=== PATIENT | male | born 1930 | race Caucasian/White ===

== ENCOUNTER 2016-11-15 18:07 | Observation (INO) ==
--- NOTE | 2016-11-15 19:21 | Emergency Department Note ---
Weakness HPI - General Chief complaint: Weakness Stated complaint: weakness, L eye difficulty Time Seen by Provider: 11/15/16 19:09 Source: patient Mode of arrival: ambulatory - History of Present Illness HPI Narrative: patient is here with a variety of symptoms for 1 he just generally feels weak, second also is no some tingling to left side of his face, as I on the left side is also a little bit tingling does have some tears to the left eye while ago. Notany skin rash, did have a little bit of left-sided facial pain which is now resolved. The. He does have dentures, no fevers, no chills, no chest pain, he always has a little bit of abdominal pain. Does have a history of some aneurysms, last time he checked out. They were 4 cm in size. No nausea, vomiting, no diarrhea,he was a little bit more winded today. Does have a history of CHF. MD Complaint: generalized weakness - Related Data Home Medications Medication Instructions Recorded Confirmed Oxygen 3L multimedia assistant 3 lf MISCELLANE CONT 05/31/15 11/11/16 Previous Rx's Medication Instructions Recorded labetalol 100 mg tablet 100 mg PO BID #90 tab 09/23/16 triamcinolone acetonide 0.5 % 1 applic TOPICAL BID #45 g 09/23/16 topical ointment Allergies Allergy/AdvReac Type Severity Reaction Status Date / Time azithromycin [From Zithromax] Allergy Unknown Unknown Verified 11/15/16 18:14 Cephalosporins Allergy Unknown Unknown Verified 11/15/16 18:14 lisinopril Allergy Unknown Unknown Verified 11/15/16 18:14 nifedipine [From Procardia] Allergy Unknown Unknown Verified 11/15/16 18:14 losartan Allergy Rash Verified 11/15/16 18:14 Review of Systems All systems ED: reviewed and negative except as stated. Past Medical History - Past Medical History Source: old records reviewed, nursing notes reviewed Medical history: Reports: CHF, COPD, GERD, hyperlipidemia, hypertension, osteoporosis, renal disease, other (CHF, left mastectomy, pancreatitis, cholecystectomy, hypertension, COPD, blindness, one EYE, aortic abdominal aneurysm) Family history: Reports: no significant family history - Social History smoking status: Never smoker Alcohol use: Reports: Rarely Drug use: Reports: none Physical Exam - General Limitations: no limitations General appearance: alert, in no apparent distress, anxious - Head Head exam: atraumatic, normocephalic - Eye Eye exam: Present: normal appearance, PERRL, EOMI, other (light degree of ptosis ) - ENT ENT exam: normal exam, normal oropharynx, mucous membranes moist, TM's normal bilaterally - Neck Neck exam: Present: normal inspection, full ROM, trachea midline. Absent: tenderness, meningismus - Chest Chest inspection: Present: normal inspection - Respiratory Respiratory exam: Present: normal lung sounds bilaterally. Absent: respiratory distress, wheezes - Cardiovascular Cardiovascular exam: Present: regular rate, normal rhythm, normal heart sounds - Abdominal Exam Abdominal exam: Present: soft, diminished bowel sounds. Absent: distention, tenderness, guarding, rebound - Extremities Exam Extremities exam: Present: normal inspection, full ROM. Absent: pedal edema, calf tenderness - Back Exam Back exam: Present: normal inspection, full ROM Course Vital Signs Temperature 97.2 F L 11/15/16 18:08 Pulse Rate 86 11/15/16 18:08 Respiratory Rate 16 11/15/16 18:08 Blood Pressure 159/98 11/15/16 18:08 Pulse Oximetry (%) 98 11/15/16 18:08 Temperature 97.2 F L 11/15/16 18:08 Pulse Rate 86 11/15/16 18:08 Respiratory Rate 16 11/15/16 18:08 Blood Pressure 159/98 11/15/16 18:08 Pulse Oximetry (%) 98 11/15/16 18:08 Disposition Condition: Undetermined Referrals: Mitchell Nam MD [Primary Care Provider] -
[2016-11-15] MEDS ORDERED: NITROGLYCERIN 1 GM OINT.TOP TD ONE (19:23)
[2016-11-15] MEDS ORDERED: hydrALAZINE 20 MG/ML VIAL IV ONE (19:28)
--- NOTE | 2016-11-15 19:57 | XRay Report ---
CLINICAL INFORMATION: Chest pain COMPARISON: 11/20/2015 FINDINGS: Moderate cardiomegaly is unchanged. Mediastinum and pulmonary vessels are normal. Mild interstitial infiltrate is seen throughout the right lung. Mild underlying interstitial fibrosis appreciated - bases IMPRESSION: Moderate diffuse interstitial infiltrate throughout the right lung - new. Interpreted and Authenticated by: Torito Moore 11/15/16
[2016-11-15] MEDS ORDERED: SPIRONOLACTONE 25 MG TABLET PO ONE (20:01)
[2016-11-15 20:25] LABS: Basophils # (Auto) 0 K/mcL (0.0-0.3); Basophils % (Auto) 0.7 % (0.0-2.0); Eosinophils # (Auto) 0.3 K/mcL (0.0-0.7); Eosinophils % (Auto) 5.3 % (0.0-7.0); Granulocytes % (Auto) 65.5 % (38.0-78.0); Lymphocytes # (Auto) 1.2 K/mcL (1.5-4.8); Lymphocytes % (Auto) 20.6 % (15.5-49.0); Mean Corpuscular HGB Conc 32.2 g/dL (31.0-36.0); Mean Corpuscular Hemoglobin 29.3 pg (26.0-34.0); Monocytes # (Auto) 0.5 K/mcL (0.1-0.9); Monocytes % (Auto) 7.9 % (1.0-9.0); Platelet Count 183 K/mcL (140-440); RBC 4.87 M/mcL (4.50-5.90); Red Cell Distribution Width 13.7 % (11.5-14.5)
[2016-11-15 20:31] LABS: Appearance,Urine CLEAR; Bacteria,Urine 0 /hpf (0); Bilirubin,Urine NEG (NEG); Color,Urine YELLOW; Glucose,Urine (UA) NEGATIVE (NEG); Leukocyte Esterase,Urine NEG /uL (NEG); Mucus,Urine FEW /hpf (0); Nitrate,Urine NEG (NEG); Protein,Urine NEG (NEG); Specific Gravity,Urine 1.011 (1.000-1.035); Urine Blood NEG mg/dL (<0.03); Urine RBC 4 /hpf (0-1); Urine Squamous Epithelial Cell < 1 /hpf (0-4); Urine WBC 1 /hpf (0-4); Urobilinogen,Urine NEG (NEG)
[2016-11-15 20:57] LABS: ALT/SGPT 10 U/l (0-40); Albumin 3.7 gm/dL (3.2-5.2); Albumin/Globulin Ratio 1.1 (1.0-2.3); Alkaline Phosphatase 63 U/L (39-117); Blood Urea Nitrogen 20 mg/dl (8-23); C-Reactive Protein < 0.3 mg/dl (0.0-0.8)
[2016-11-15 21:08] LABS: Erythrocyte Sedimentation Rate 11 mm/hr (0-15)
--- NOTE | 2016-11-15 22:03 | Internal Med History&Physical ---
Medical - H&P: HPI Patient information: Note initiated : 11/15/16 at 9:51 pm Service Date, if different from initiated Date: [] Patient: Lon Bahena 86 y/o M admitted on for weakness, L eye difficulty. Chief Complaint: [] History of present illness: Mr. Bahena is a 86 year old male presents to the emergency room today complaining of feeling poorly. He is having a very difficult time describing exactly what is going on. He notes that sometime today his left eye started aching and then it started burning and stinging, and then the also had a lot of tears. He then developed a left-sided headache, and says the left side of his head felt a little bit numb as well. However, he then mentions that he has had declining vision and a history of glaucoma and left-sided headaches on and off for years. He just thinks today was worse than usual. He says he's been feeling generally weak and dizzy and slightly nauseated. He said some minor upper abdominal and left upper quadrant discomfort as well, and perhaps chills also. His ears ringing intermittently. He reports that he had some mild shortness of breath last nightand felt like his throat was swelling, but says it seems like that is a lot better today. He did say that he had some chest pain , but then points to his epigastric area and left upper quadrant areas, and in addition has chronic right upper quadrant pain. He notes he has had both diarrhea and constipation today, but also has those on an intermittent basis. He has chronic dysuria and known history of prostate cancer which he has not been treating. He has had gradual decline in his left eye vision over the last 5 years, and is now essentially completely blind. He says his eye doctors told him there is no point in treating the glaucoma at this point, as it is too far gone. ER evaluation showed possible infiltrates in his right lung in addition to chronic mild pulmonary fibrosis changes at both bases, and chronic cardiomegaly. Blood pressure was very elevated on arrival with readings of about 190/100. BNP was markedly elevated as well, with normal troponin. EKG shows sinus rhythm with left axis deviation and significant LVH as well as low voltage. because the patient is feeling so poorly, it was felt necessary to admit him for further testing and observation. otherwise, he does not report fever or ear discharge. He does report these been having nosebleeds lately, so stopped his aspirin a couple of days ago. He does wear oxygen 24 hours a day, and says his mouth and throat have been feeling dry lately. [facility] Medical History CHF NYHA class III (symptoms with mildly strenuous activities) Minor head injury without loss of consciousness Nausea Skin avulsion ( Transient cerebral ischemia Abdominal aortic aneurysm () Benign essential hypertension Blindness, one eye Chronic obstructive pulmonary disease Dyspnea Edema leg Heart murmur ) Pancreatitis ) Personal history of breast cancer,left prostate cancer, being followed by Dr. Nunes, but not being treated currently. Also BPH with obstruction.large left inguinal hernia, for which she wears a truss. Reported history of RI and possible past CHF. Reported chronic pain, which she blames on arthritis. Surgical History History of cholecystectomy History of excision of mass ) Subcutaneous mass from chest History of left mastectomy ) Medication List labetalol 100 mg PO BID-- sometimes he will take an extra dose during the day if his blood pressure is reading quite high. [Oxygen 3L multimedia services coordinator 3 LF Miscellaneous CONT] triamcinolone acetonide 0.5% 1 applic Topical BID Flomax 0.4 daily. He does take Tylenol and ibuprofen occasionally for arthritis pain, but thinks he last used the ibuprofen at least a month ago. Aspirin 81 mg daily, most days. Vitamin C occasionally. Allergies/Adverse Reactions azithromycin [From Zithromax] Allergy (Unknown, Verified 10/07/16 11:30) Unknown Cephalosporins Allergy (Unknown, Verified 10/07/16 11:30) Unknown lisinopril Allergy (Unknown, Verified 10/07/16 11:30) Unknown nifedipine [From Procardia] Allergy (Unknown, Verified 10/07/16 11:30) Unknown losartan Allergy (Verified 10/07/16 11:50) Rash Family History Father Malignant neoplasm of lung Mother Malignant neoplasm of uterus Social History smoking status: Never smoker alcohol intake frequency: holiday/special occasion only. The patient does not use drugs. He does live alone, but has caregivers that come in about 6 days a week, for a couple of hours. He does note that he is feeling generally less able to take care of himself lately. Medical - H&P: Meds Home Medications Medication Instructions Recorded Confirmed Type Oxygen 3L multimedia services coordinator 3 lf MISCELLANE CONT 05/31/15 11/11/16 History Allergies Allergy/AdvReac Type Severity Reaction Status Date / Time azithromycin [From Zithromax] Allergy Unknown Unknown Verified 11/15/16 18:14 Cephalosporins Allergy Unknown Unknown Verified 11/15/16 18:14 lisinopril Allergy Unknown Unknown Verified 11/15/16 18:14 nifedipine [From Procardia] Allergy Unknown Unknown Verified 11/15/16 18:14 losartan Allergy Rash Verified 11/15/16 18:14 Medical - H&P: Exam - Constitutional Vitals: Temp Pulse Resp BP Pulse Ox 97.2 F L 84 12 141/90 98 11/15/16 18:08 11/15/16 21:30 11/15/16 21:30 11/15/16 21:30 11/15/16 21:30 On exam, he is a slender, elderly man, who is in no acute distress at this time. He is quite talkative. Head: Normocephalic, atraumatic. Eyes: Pupils are round, and equal. Conjunctiva are injected. EOMI. Left pupil is only sluggishly reactive to light, and has minimal vision in the left eye tMs and canals are mostly clear. Pharynx: Mucosa is dry. Otherwise pharynx is clear. He does have full upper and lower plates in place. Neck: Appears supple, without obvious JVD, thyromegaly, bruits, lymph nodes. 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 Cardiac exam: Shows regular rate and rhythm, with normal S1 and S2. I do not hear significant murmurs, rubs, gallops. lungs:May have a few crackles at the bases, but otherwise are clear, without obvious rales, rhonchi, wheezes. There is no sensory muscle use. Abdomen: Is soft, without obvious tenderness. Masses are not evident. I am not able to palpate the aneurysm easily.bowel sounds are active. e is wearing a truss, and there is a small bulge noted in the left groin, which she says will pop out if he takes the truss off. Extremities: Show no cyanosis, clubbing, edema. Neurologic exam: Patient is alert and oriented 3. Motor and cerebellar exams are grossly intact. No tremor is noted. Mood and affect appear normal. Skin exam: Does not show any worrisome lesions. Medical - H&P: Reslt - Labs CBC & Chem 7: 11/15/16 19:41 11/15/16 19:40 Labs: Short CBC 11/15/16 Range/Units 19:41 WBC 6.1 (4.5-11.0) K/mcL Hgb 14.3 (13.5-16.5) g/dL Hct 44.3 (41.0-55.0) % Plt Count 183 (140-440) K/mcL BMP 11/15/16 19:40 Sodium 141 Potassium 4.3 Chloride 99 Carbon Dioxide 27 BUN 20 Creatinine 1.1 Glucose 123 H Calcium 8.8 Cardiac Enzymes 11/15/16 Range/Units 19:41 Troponin T < 0.01 (0-0.03) ng/ml Liver Function 11/15/16 Range/Units 19:40 Total Bilirubin 0.7 (0.0-1.0) mg/dL AST 20 (0-37) U/l ALT 10 (0-40) U/l Alkaline Phosphatase 63 (39-117) U/L Albumin 3.7 (3.2-5.2) gm/dL Urine 11/15/16 Range/Units 19:48 Urine Color Yellow Urine Appearance Clear Urine pH 7.0 (5.0-9.0) Ur Specific [place] 1.011 (1.000-1.035) Urine Protein Neg (NEG) mg/dL Urine Glucose (UA) Negative (NEG) mg/dL Medical - H&P: A/P (1) Short lasting unilateral neuralgiform headache with conjunctival injection and tearing Current visit: Yes Status: Acute (2) Elevated blood pressure reading Current visit: Yes Status: Acute (3) CHF NYHA class III (symptoms with mildly strenuous activities) Current visit: No Status: Acute (4) Chronic obstructive pulmonary disease Current visit: No Status: Chronic - Narrative A/P Narrative: #1. Cardiac. Patient presents with markedly elevated blood pressure, of uncertain etiology, although may be situational. He does have labile hypertensionat home, at baseline. He was given hydralazine and spironolactone in the emergency room, in addition to nitro paste, and blood pressure is now improving. Patient has been admitted to telemetry, and we will monitor further overnight. #2. Left eye pain and left-sided headache. it is unclear f this might be an acute glaucoma episode, or if he is having recurrent migraine/hemicranial type headaches.is discomfort has eased off since he's been here, so we will continue to follow. -he already has nearly complete loss of vision in his left eye due to glaucoma. #3.Pulmonary. This patient has known COPD and possible mild pulmonary fibrosis. He has worsening infiltrate in the right lung gan today, of uncertain etiology. He does not endorse any symptoms suggestive of pneumonia. he may have a mild CHF exacerbation, although clinicallyhe looks more dry than wet. -he did receive a diuretic in the emergency room, so I will just follow for now. #4. Intermittent and chronic abdominal pain. -His exam is fairly benign this evening. He does have a chronic hernia oldwhich does not seem to be the cause of his epigastric pain. He also has a known aortic aneurysm, but againthe location of the painappears to be more suggestive of GERD. I will add a proton pump inhibitor this evening. #5. CODE STATUS: Next #6. DVT prophylaxis: Subcutaneous heparin, also we will resume his usual aspirin. #7. Recent nosebleeds. I suspect this is just due to dry air. -Add a saline nasal spray. #8. Patient reports chronic joint pain. 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 Tylenol has been ordered. He will need further education aboutavoiding NSAIDs, as this probably contributes to his elevated blood pressure. this visit as taken approximately 60 minutes of our this evening, to review his case with the ER [facility]. review his old records, interview and examine him, and write orders.
[2016-11-15] MEDS ORDERED: NITROGLYCERIN 0.4 MG TAB.SUBL SL PRN ×2 (22:28)
[2016-11-15] MEDS ORDERED: DOCUSATE SODIUM 100 MG CAPSULE PO PRN (22:28)
[2016-11-15] MEDS ORDERED: ALBUTEROL SULFATE 2.5 MG/3 ML NEBULIZER NEB PRN (22:28)
[2016-11-15] MEDS ORDERED: ONDANSETRON 4 MG/2 ML VIAL IV PRN (22:28)
[2016-11-15] MEDS ORDERED: NALOXONE HCL 0.4 MG/ML VIAL IV PRN (22:28)
[2016-11-15 23:03] LABS: ALT/SGPT 10 U/l (0-40); Albumin 3.7 gm/dL (3.2-5.2); Albumin/Globulin Ratio 1.1 (1.0-2.3); Alkaline Phosphatase 63 U/L (39-117); Bilirubin,Direct < 0.2 mg/dL (0.0-0.3); Blood Urea Nitrogen 20 mg/dl (8-23); Gamma Glutamyl Transpeptidase 10 U/L (8-61); Magnesium 2.1 mg/dL (1.6-2.5); Phosphorous 3.1 mg/dL (2.7-4.5); Uric Acid 3.2 mg/dL (2.5-8.0)
[2016-11-15] MEDS ORDERED: SODIUM CHLORIDE NASAL 1 SPRAY BOTTLE NAS PRN (23:11)
[2016-11-16] MEDS: ACETAMINOPHEN 325 MG TABLET PO PRN (00:17)
[2016-11-16] MEDS ORDERED: ACETAMINOPHEN 325 MG TABLET PO ONE (00:27)
[2016-11-16 05:29] LABS: Basophils # (Auto) 0 K/mcL (0.0-0.3); Basophils % (Auto) 0.5 % (0.0-2.0); Eosinophils # (Auto) 0.3 K/mcL (0.0-0.7); Eosinophils % (Auto) 5.9 % (0.0-7.0); Granulocytes % (Auto) 62.1 % (38.0-78.0); Lymphocytes # (Auto) 1.3 K/mcL (1.5-4.8); Mean Cell Volume 91.7 fL (80.0-100.0); Mean Corpuscular HGB Conc 32.3 g/dL (31.0-36.0); Mean Corpuscular Hemoglobin 29.6 pg (26.0-34.0); Monocytes # (Auto) 0.5 K/mcL (0.1-0.9); Monocytes % (Auto) 9.5 % (1.0-9.0); Platelet Count 164 K/mcL (140-440); RBC 4.44 M/mcL (4.50-5.90)
[2016-11-16 05:58] LABS: ALT/SGPT 11 U/l (0-40); Albumin 3.3 gm/dL (3.2-5.2); Albumin/Globulin Ratio 1.3 (1.0-2.3); Alkaline Phosphatase 55 U/L (39-117); Bilirubin,Direct < 0.2 mg/dL (0.0-0.3); Blood Urea Nitrogen 19 mg/dl (8-23); Gamma Glutamyl Transpeptidase 9 U/L (8-61); Phosphorous 3.4 mg/dL (2.7-4.5); Uric Acid 2.8 mg/dL (2.5-8.0)
[2016-11-16] MEDS: PANTOPRAZOLE 40 MG VIAL IV SCH (07:07)
--- NOTE | 2016-11-16 07:46 | XRay Report ---
CLINICAL INFORMATION: History of congestive heart failure COMPARISON: Previous chest x-rays dated 11/15/2015, 11/17/2014, 06/13/2014 FINDINGS: No focal pulmonary parenchymal infiltrate or mass. Interstitial markings remain mildly prominent but there are no definite septal lines. No definite pulmonary edema. No change in heart size. Pamella and mediastinum are negative. Costophrenic angles are normal. No detectable pleural fluid. IMPRESSION: No acute or focal abnormality. Interpreted and Authenticated by: Toirto Maciel 11/16/16
[2016-11-16] MEDS: ASPIRIN 81 MG TAB.CHEW PO SCH (09:51)
[2016-11-16] MEDS: ENOXAPARIN 30 MG/0.3 ML SYRINGE SQ SCH ×2 (09:52→10:36)
--- NOTE | 2016-11-16 13:05 | Internal Med Progress Note ---
Medical - PN: Subj Patient information: Note initiated : 11/16/16 at 1:05 pm Service Date, if different from initiated Date: [] Patient: Lon Bahena 86 y/o M admitted on 11/15/16 for Weakness, L Eye Difficulty. Chief Complaint: [] Interval history: November 15, 2016: History of present illness: Mr. Bahena is a 86 year old male presents to the emergency room today complaining of feeling poorly. He is having a very difficult time describing exactly what is going on. He notes that sometime today his left eye started aching and then it started burning and stinging, and then the also had a lot of tears. He then developed a left-sided headache, and says the left side of his head felt a little bit numb as well. However, he then mentions that he has had declining vision and a history of glaucoma and left-sided headaches on and off for years. He just thinks today was worse than usual. He says he's been feeling generally weak and dizzy and slightly nauseated. He said some minor upper abdominal and left upper quadrant discomfort as well, and perhaps chills also. His ears ringing intermittently. He reports that he had some mild shortness of breath last nightand felt like his throat was swelling, but says it seems like that is a lot better today. He did say that he had some chest pain , but then points to his epigastric area and left upper quadrant areas, and in addition has chronic right upper quadrant pain. He notes he has had both diarrhea and constipation today, but also has those on an intermittent basis. He has chronic dysuria and known history of prostate cancer which he has not been treating. He has had gradual decline in his left eye vision over the last 5 years, and is now essentially completely blind. He says his eye doctors told him there is no point in treating the glaucoma at this point, as it is too far gone. ER evaluation showed possible infiltrates in his right lung in addition to chronic mild pulmonary fibrosis changes at both bases, and chronic cardiomegaly. Blood pressure was very elevated on arrival with readings of about 190/100. BNP was markedly elevated as well, with normal troponin. EKG shows sinus rhythm with left axis deviation and significant LVH as well as low voltage. because the patient is feeling so poorly, it was felt necessary to admit him for further testing and observation. otherwise, he does not report fever or ear discharge. He does report these been having nosebleeds lately, so stopped his aspirin a couple of days ago. He does wear oxygen 24 hours a day, and says his mouth and throat have been feeling dry lately. November 16, 2016: today, the patient states she is feeling much better. He still has a bit of a left-sided headache, but it is much closer to what he had in the past now. He still says he has chronic chest pain and chronic shortness of breath, which are also at baseline. He says he ran out of inhaler sometime ago, and didn't refill them because he was concerned that the inhalers made his breathing worse. He is now saying he might like to have one to use as needed . He does say now that he previously had a lung doctor but doesn't think he has seen one for about 10 years. He says his abdominal discomfort in the epigastric and left upper quadrant areas is gone today. He continues to have the chronic right lower rib discomfort. He believes he was previously started on oxygenby adoctorbecause his oxygen levels were too low, but he cannot really can't recall the details. Otherwise, he denies fever or chills, abdominal pain, nausea or vomiting, diarrhea, or new urinary symptoms. - Constitutional Vitals: Vital Signs Temp Pulse Resp BP Pulse Ox 98.4 F 74 20 124/76 99 11/16/16 11:32 11/16/16 08:00 11/16/16 11:32 11/16/16 11:32 11/16/16 11:32 Period Temp Pulse Resp BP Sys/Jones Pulse Ox Last 24 Hr 97.9 F-98.4 F 61-83 20-20 105-146/66-93 95-99 Intake and Output 11/15/16 11/16/16 11/16/16 21:59 05:59 13:59 Intake Total 50 / 50 Output Total 700 / 700 Balance -650 / -650 Weight 135 lb 9.6 oz Intake & Output: Intake & Output 11/15/16 11/16/16 11/16/16 21:59 05:59 13:59 Intake Total 50 / 50 Output Total 700 / 700 Balance -650 / -650 Weight 135 lb 9.6 oz Intake: Oral 50 / 50 Output: Void Amount 700 / 700 Exam: on exam, he is awake and alert. He appears in no acute distress. neck appears supple without obvious JVD. Cardiac exam chest regular rate and rhythm Lungs are essentially clear to auscultation. Abdomen is soft and nontender. Extremities show no edema. Medical - PN: Obj Da - Labs CBC & Chem 7: 11/16/16 03:35 11/16/16 03:35 Labs: Abnormal Lab Results 11/16/16 11/16/16 03:35 03:35 RBC 4.44 L Hgb 13.2 L Hct 40.8 L [place] % (Auto) 9.5 H Lymph # 1.3 L Calcium 8.3 L MRI of his brain done today,shows cerebral atrophy, small vessel ischemic change , and sinusitis.orbits and globes appear normal. chest x-ray from today, November 16, showsno acute abnormalities. Today's reading says no infiltrates are seen. Interstitial markings are mildly prominent Meds: Medications Acetaminophen (Tylenol) 650 mg PO Q6HP PRN PRN Reason: PAIN/FEVER > 101 Last Admin: 11/16/16 00:17 Dose: 650 mg Albuterol Sulfate (Ventolin) 2.5 mg NEB Q4HRT PRN PRN Reason: Shortness Of Breath Or Wheezing Aspirin (Aspirin) 81 mg PO DAILY [facility] Last Admin: 11/16/16 09:51 Dose: 81 mg Docusate Sodium (Colace) 100 mg PO BID PRN PRN Reason: Constipation Enoxaparin Sodium (Lovenox) 30 mg SQ DAILY [facility] Last Admin: 11/16/16 10:36 Dose: Not Given Morphine Sulfate (Morphine) 2 mg IV Q5MIN PRN PRN Reason: Chest Pain Naloxone HCl (Narcan) 0.1 mg IV Q2MIN PRN PRN Reason: Opiate Reversal Nitroglycerin (Nitrostat) 0.4 mg SL Q5M PRN PRN Reason: Chest Pain Ondansetron HCl (Zofran) 4 mg IV Q4HP PRN PRN Reason: Nausea And Vomiting Pantoprazole Sodium (Protonix) 40 mg IV QAMAC [facility] Last Admin: 11/16/16 07:07 Dose: 40 mg Pneumococcal Polyvalent Vaccine (Pneumovax 23) 0.5 ml IM .ONCE ONE Stop: 11/17/16 10:01 Sodium Chloride ([place] Nasal) 2 spray LISBETH Q4HP PRN PRN Reason: Congestion Medical - PN: A/P - Time Spent With Patient Total time spent is greater than 50% in coordination of care (as documented) at patient's floor/unit and/or counseling patient: 25 - 35 minutes (1) Short lasting unilateral neuralgiform headache with conjunctival injection and tearing Status: Acute Current Visit: Yes (2) Elevated blood pressure reading Status: Acute Current Visit: Yes (3) CHF NYHA class III (symptoms with mildly strenuous activities) Status: Acute Current Visit: No (4) Chronic obstructive pulmonary disease Status: Chronic Current Visit: No - Narrative A/P Narrative: #1. Cardiac. Patient presents with markedly elevated blood pressure, of uncertain etiology, although may be situational. He does have labile hypertension at home, at baseline. -blood pressures have been well controlled since admission Continue current medications. #2. Left eye pain and left-sided headache. it is unclear f this might have been an acute glaucoma episode, or if he is having recurrent migraine/hemicranial type headaches.is discomfort has eased off since he's been here, so we will continue to follow. MRI done today does not show any obvious tumors or any obvious abnormalities of the left eye globe. #3.Pulmonary. This patient has known COPD and possible mild pulmonary fibrosis. -hest x-ray today actually looked better, and is now being read as not showing infiltrates. #4. Intermittent and chronic abdominal pain. -His exam is fairly benign this morning. He does have a chronic hernia which does not seem to be the cause of his epigastric pain. He also has a known aortic aneurysm, but again the location of the pain appears to be more suggestive of GERD. Abdominal pain is improved today Proton pump inhibitor was added. #5. CODE STATUS: ull code. #6. DVT prophylaxis: Subcutaneous heparin, also we will resume his usual aspirin. #7. Recent nosebleeds. I suspect this is just due to dry air. -Add a saline nasal spray. -MRI does suggest sinusitis, so we could also consider a trial of Flonaseas this may help promote decrease of edema and also promote drainage. #8. Patient reports chronic joint pain. 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 Tylenol has been ordered. He will need further education about avoiding NSAIDs, as this probably contributes to his elevated blood pressure. Medical - PN: Qual - VTE Deep Vein Thrombosis/Pulmonary Embolism Present on Admission: No
--- NOTE | 2016-11-16 16:28 | Magnetic Resonance Report ---
CLINICAL INFORMATION: Severe left orbital pain and headache TECHNIQUE: Axial, sagittal, coronal images to the brain. 6 mL gadolinium injected intravenously. COMPARISON: Previous CT scan dated 08/05/2016 FINDINGS: No restricted diffusion. No acute infarction. Susceptibility images are negative. No acute or chronic hemorrhagic abnormality. Cerebral atrophy with prominent superficial subarachnoid spaces and ventricular enlargement. There is is unchanged. There is white matter abnormality with multiple foci of increased signal intensity in the white matter both cerebral hemispheres. Findings are both subcortical and periventricular. No localized mass effect. No enhancing lesions. Brainstem and cerebellum are negative. No extra-axial, intracranial abnormality. No pathologic leptomeningeal or dural enhancement. Normal flow void within vessels at the base of the brain. Cavernous sinuses are negative. Basilar cisterns are normal. Confluent soft tissue abnormality within both maxillary sinuses consistent with sinusitis. Mild mucosal thickening within frontal and ethmoid sinuses. Orbits are negative. Globes are normal. No enhancing lesions. IMPRESSION: 1. Cerebral atrophy with prominent subarachnoid spaces and ventricular enlargement. Appearance is unchanged since 08/05/2016. 2. White matter abnormality. Appearance is consistent with small vessel ischemic change. 3. Sinusitis. 4. No acute intracranial abnormality. Interpreted and Authenticated by: Torito Maciel 11/16/16
[2016-11-17 06:48] LABS: Basophils # (Auto) 0 K/mcL (0.0-0.3); Basophils % (Auto) 0.6 % (0.0-2.0); Eosinophils # (Auto) 0.4 K/mcL (0.0-0.7); Eosinophils % (Auto) 5.6 % (0.0-7.0); Granulocytes % (Auto) 60.9 % (38.0-78.0); Lymphocytes # (Auto) 1.6 K/mcL (1.5-4.8); Lymphocytes % (Auto) 25.4 % (15.5-49.0); Mean Cell Volume 90.8 fL (80.0-100.0); Mean Corpuscular HGB Conc 32.8 g/dL (31.0-36.0); Mean Corpuscular Hemoglobin 29.8 pg (26.0-34.0); Monocytes # (Auto) 0.5 K/mcL (0.1-0.9); Monocytes % (Auto) 7.5 % (1.0-9.0); Platelet Count 174 K/mcL (140-440); RBC 4.92 M/mcL (4.50-5.90); Red Cell Distribution Width 13.4 % (11.5-14.5)
--- NOTE | 2016-11-17 07:02 | Echocardiogram Report ---
ECHOCARDIOGRAM: 2-D and M-mode echocardiography with cardiac Doppler and color flow imaging were performed with a [employer] MX. Indication is congestive heart failure. The study was technically suboptimal for anatomic reasons. A diagnostic M-mode tracing of the LV could not be obtained. Overall size of the RA, RV and LV appeared normal. LV wall thickness appeared mildly increased. The basal half of the posterolateral wall appeared aneurysmal. The other LV segments appeared to contract normally and overall LV systolic performance appeared borderline reduced. Estimated ejection fraction is 50%. The LA appeared mildly enlarged. The aortic root appeared mildly dilated. The aortic valve appeared trileaflet and normal for age. There was no evidence for aortic stenosis by Doppler interrogation. Aortic regurgitation, probably mild (1+), was demonstrated. The mitral leaflets and chordae tendineae displayed focal calcification. Valve motion appeared normal. Doppler interrogation of LV inflow disclosed prolonged early diastolic deceleration time and ''a'' wave dominance indicating delayed LV relaxation. Mitral regurgitation, probably mild to moderate (1-2+), was demonstrated. The pulmonic valve was not visualized. Pulmonary artery acceleration time appeared normal. There was no evidence for pulmonic stenosis. No more than trivial pulmonic regurgitation was noted. Tricuspid valve appeared normal. Tricuspid regurgitation, probably moderate (2+), was demonstrated. No intracardiac shunting was appreciated. There was no evidence for pericardial effusion. The IVC was of normal diameter and showed mild respiratory variation. Calculated estimate of PA systolic pressure is moderately elevated at 55 mmHg. Sinus rhythm, rate 74, was present. CONCLUSION:Technically suboptimal study for anatomic reasons. Mild aortic root dilatation. Aortic regurgitation, probably mild (1+) Mild concentric LVH with mild segmental systolic dysfunction (aneurysmal basal posterolateral wall). Mitral regurgitation, probably mild to moderate (1-2+), with mild LA enlargement. Moderate pulmonary hypertension. (See accompanying M-mode and Doppler reports for quantitation.) ECHOCARDIOGRAPHY M-MODE CALCULATIONS: HT: 67'' WT: 138 BSA: 1.73 m2 NORMALS AORTA: AORTIC ROOT 3.9 2.0-3.7 cm LEFT ATRIUM 4.0 1.9-4.0 cm MITRAL VALVE: EXCURSION 1.8 1.9-2.7 cm EPSS 0.2 <0.5 cm LT VENTRICLE: LVID (ED) -- 3.5-5.7 cm LVID (ES) -- SEPTAL THICKNESS -- 0.6-1.1 cm SEPTAL EXCURSION -- 0.3-0.8 cm LVPW THICKNESS -- 0.6-1.1 cm LVPW EXCURSION -- 0.9-1.4 cm MINOR AXIS FS -- 25%-40% RT VENTRICLE: RVID (ED) -- 0.9-2.6 cm(up to 3cm if LLD) QUALITATIVE DOPPLER FLOW STUDIES MITRAL VALVE MR, probably mild to moderate (1-2+) AORTIC VALVE AR, probably mild (1+) TRICUSPID VALVE TR, probably moderate (2+) PULMONIC VALVE IA, probably trivial QUANTITATIVE DOPPLER FLOW STUDIES SAMPLE SITES VELOCITIES PEAK PRESSURE VALVE AREA and/or VALVE WINDOW (PEAK,M/SEC) DROP (GRADIENT) PRESSURE HALF-TIME MV (Diastole) 0.8 1.0 -- -- MV (Systole) 5.0 -- -- AO (Diastole) 4.5 -- 560 msec AO (Systole) 1.2 -- -- TV (Systole) 3.4 -- -- PV (Systole) 0.85 -- -- PV (Diastole) 0.6 LWG:dheeraj Job ID: [id number] Doc ID: [id number] Ahsan Mueller MD
[2016-11-17 07:23] LABS: ALT/SGPT 12 U/l (0-40); Albumin 3.9 gm/dL (3.2-5.2); Albumin/Globulin Ratio 1.4 (1.0-2.3); Alkaline Phosphatase 62 U/L (39-117); Bilirubin,Direct 0.2 mg/dL (0.0-0.3); Blood Urea Nitrogen 18 mg/dl (8-23); Gamma Glutamyl Transpeptidase 9 U/L (8-61); Uric Acid 3.1 mg/dL (2.5-8.0)
[2016-11-17] MEDS: ACETAMINOPHEN 325 MG TABLET PO PRN (07:26)
[2016-11-17] MEDS: ASPIRIN 81 MG TAB.CHEW PO SCH (07:26)
[2016-11-17] MEDS: PANTOPRAZOLE 40 MG VIAL IV SCH (07:26)
--- NOTE | 2016-11-17 08:22 | XRay Report ---
CLINICAL INFORMATION: History of congestive heart failure TECHNIQUE: Upright AP portable chest x-ray COMPARISON: 11/16/2016, 11/15/2016, 11/17/2014 FINDINGS: Mild cardiomegaly, unchanged. Pulmonary vascularity is negative. No pulmonary edema or significant pulmonary congestion. No focal pulmonary parenchymal infiltrate or mass. No interval change since 11/16/2016. IMPRESSION: No acute abnormality. No interval change since 11/16/2016. Interpreted and Authenticated by: Torito Maciel 11/17/16
[2016-11-17] MEDS ORDERED: LABETALOL 100 MG TABLET PO SCH (09:00)
[2016-11-17] MEDS: ENOXAPARIN 30 MG/0.3 ML SYRINGE SQ SCH (09:29)
[2016-11-17] MEDS ORDERED: PNEUMOCOCCAL 23-VAL P-SAC VAC 0.5 ML VIAL IM ONE (10:00)
[2016-11-17] MEDS ORDERED: FLU VACC QS2016-17 36MOS UP/PF 60 MCG/0.5 ML SYRINGE IM ONE (10:00)
--- NOTE | 2016-11-17 10:13 | Discharge Summary ---
Medical - DS: Prov Patient information: Note initiated : 11/17/16 at 10:01 am Service Date, if different from initiated Date: [] Patient: Lon Bahena 86 y/o M admitted on 11/15/16 for Weakness, L Eye Difficulty. Chief Complaint: [] Date of admission: 11/15/16 22:15 Discharge date: 11/17/16 Primary care physician: [Dr. Mitchell Nam, phone #[phone]] Admitting clinician: Rakel Esquivel Attending physician on discharge: Rakel Esquivel Medical - DS: Meds - Discharge Medications Prescriptions: Albuterol Sulfate [Proair Hfa] 8.5 gm IH Q4HP PRN #1 [email or web address] PRN Reason: Shortness Of Breath Or Wheezing Fluticasone Propionate [Flonase] 1 spray NS BIDP PRN #1 spray.lisbeth PRN Reason: Sinus Symptoms Active and Home Medications: Home Medications Labetalol [Trandate] 100 mg PO TID 11/16/16 [History Confirmed 11/17/16 Last Taken 11/15/16 12:00] PT STOPPED THIS FOR REPORTED THROAT SWELLING Losartan [Cozaar] 25 mg PO DAILY 11/16/16 [History Confirmed 11/16/16 Last Taken Unknown] Active Medications Acetaminophen (Tylenol) 650 mg PO Q6HP PRN PRN Reason: PAIN/FEVER > 101 Last Admin: 11/17/16 07:26 Dose: 650 mg Albuterol Sulfate (Ventolin) 2.5 mg NEB Q4HRT PRN PRN Reason: Shortness Of Breath Or Wheezing Aspirin (Aspirin) 81 mg PO DAILY [facility] Last Admin: 11/17/16 07:26 Dose: 81 mg Docusate Sodium (Colace) 100 mg PO BID PRN PRN Reason: Constipation Enoxaparin Sodium (Lovenox) 30 mg SQ DAILY [facility] Last Admin: 11/17/16 09:29 Dose: Not Given Labetalol HCl (Trandate) 100 mg PO BID [facility] Last Admin: 11/17/16 07:26 Dose: 100 mg Morphine Sulfate (Morphine) 2 mg IV Q5MIN PRN PRN Reason: Chest Pain Naloxone HCl (Narcan) 0.1 mg IV Q2MIN PRN PRN Reason: Opiate Reversal Nitroglycerin (Nitrostat) 0.4 mg SL Q5M PRN PRN Reason: Chest Pain Ondansetron HCl (Zofran) 4 mg IV Q4HP PRN PRN Reason: Nausea And Vomiting Pantoprazole Sodium (Protonix) 40 mg IV QAMAC JD Last Admin: 11/17/16 07:26 Dose: 40 mg Sodium Chloride (Glades Nasal) 2 spray LISBETH Q4HP PRN PRN Reason: Congestion Medical - DS: Hosp Hospital course: Mr. Bahena is a 86 year old male November 15, 2016: History of present illness: Mr. Bahena is a 86 year old male presents to the emergency room today complaining of feeling poorly. He is having a very difficult time describing exactly what is going on. He notes that sometime today his left eye started aching and then it started burning and stinging, and then the also had a lot of tears. He then developed a left-sided headache, and says the left side of his head felt a little bit numb as well. However, he then mentions that he has had declining vision and a history of glaucoma and left-sided headaches on and off for years. He just thinks today was worse than usual. He says he's been feeling generally weak and dizzy and slightly nauseated. He said some minor upper abdominal and left upper quadrant discomfort as well, and perhaps chills also. His ears ringing intermittently. He reports that he had some mild shortness of breath last nightand felt like his throat was swelling, but says it seems like that is a lot better today. He did say that he had some chest pain , but then points to his epigastric area and left upper quadrant areas, and in addition has chronic right upper quadrant pain. He notes he has had both diarrhea and constipation today, but also has those on an intermittent basis. He has chronic dysuria and known history of prostate cancer which he has not been treating. He has had gradual decline in his left eye vision over the last 5 years, and is now essentially completely blind. He says his eye doctors told him there is no point in treating the glaucoma at this point, as it is too far gone. ER evaluation showed possible infiltrates in his right lung in addition to chronic mild pulmonary fibrosis changes at both bases, and chronic cardiomegaly. Blood pressure was very elevated on arrival with readings of about 190/100. BNP was markedly elevated as well, with normal troponin. EKG shows sinus rhythm with left axis deviation and significant LVH as well as low voltage. because the patient is feeling so poorly, it was felt necessary to admit him for further testing and observation. otherwise, he does not report fever or ear discharge. He does report these been having nosebleeds lately, so stopped his aspirin a couple of days ago. He does wear oxygen 24 hours a day, and says his mouth and throat have been feeling dry lately. November 17, 2016: because of concerns aboutpossible intracranial pathology, the patient did have an MRI yesterday. This did show some brain atrophy, as well as bilateral sinusitis changes, but no tumors or other obvious abnormalities of the left eye globe. he patient continues to require low-level oxygenof about 1 L at rest, and then requires 2-3 L with exertion, to counteract hypoxia. He feels that his shortness of breath in general is improved today over admission.e doesn't have as much of a headache now. He is now wondering if some of the pain in his left face is from a sinus infection, as he says he's had sinus issues for a long time. He is no longer complaining of abdominal pain. He says he really is not sleeping well here in the hospital, and thinks she would like to return home at this time. He has been discussing with social work perhaps getting more in-home help to be sure that he is able to accomplish all of his home needs. on exam, he is in no acute distress, and is sitting up in a chair, and smiling and talkative. Neck is supple without obvious JVD. Cardiac exam shows regular rate and rhythm. Lung exam; have somewhat decreased breath sounds, but overall are clear. Abdomen is soft and nontender. Extremities show no significant edema. Support hose are in place. neurologic exam is grossly nonfocal. assessment and plan: #1. Cardiac. Patient presented with markedly elevated blood pressure, of uncertain etiology, although may be situational. He does have labile hypertension at home, at baseline. -blood pressures have been well controlled since admission, that were a bit elevated this morning, as I did not reorder his labetalol 4 last night. This was resumed this morning. He should continue to monitor his blood pressure in the middle of the day, and if it is running quite high, add in the third and when necessary dose of labetalol. -echocardiogram does not indicate significant heart failure at this time, and he is quite certain that he had severe heart issues many years ago, so it sounds like perhaps things have improved. -he probably should stay on his daily baby aspirin every day,as long this he is not having significant bleeding. #2. Left eye pain and left-sided headache. it is unclear f this might have been an acute glaucoma episode, or if he is having recurrent migraine/ hemicranial type headaches.is discomfort has eased off since he's been here, so we will continue to follow. MRI does not show any obvious tumors or any obvious abnormalities of the left eye globe.it does show bilateral sinusitis. #3.Pulmonary. This patient has known COPD and possible mild pulmonary fibrosis. -chest x-ray yesterday actually looked better, and is now being read as not showing infiltrates. -the patient does continue to require oxygen both at rest and with exertion. I have encouraged him to consider at least a 1 time follow-up with a pulmonary doctor to clarify his diagnosis and recommended treatments. I have prescribed him an albuterol inhaler for when necessary home use, as he does note that his breathing gets more difficult when he is exposed to certain perfumes, such as pesticides and smoke. -He is considering trying to move to a different facility where he would not have these exposures. #4. Intermittent and chronic abdominal pain. -His exam is fairly benign this morning. He does have a chronic hernia which does not seem to be the cause of his epigastric pain. He also has a known aortic aneurysm, but again the location of the pain appears to be more suggestive of GERD. -he may need to be on something either when necessary or daily for reflux, but I have advised him to avoid NSAIDs in the future, as this likely affects both his stomach and his blood pressure. #5. CODE STATUS: full code. #6. DVT prophylaxis: Subcutaneous heparin, also we resumed his usual aspirin. #7. Recent nosebleeds. I suspect this is just due to dry air. -Add a saline nasal spray. -MRI does suggest sinusitis, so we could also consider a trial of Flonaseas this may help promote decrease of edema and also promote drainage.we also discussed using a Latricia pot, as he has tried inhaled saline solutions before, and does feel that that helped. #8. Patient reports chronic joint pain. 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 Tylenol has been ordered. He will need further education about avoiding NSAIDs, as this probably contributes to his elevated blood pressure. Discharge diagnosis: uncontrolled hypertension, left hemicraania pulmonary fibrosis with hypoxi - Time Spent with Patient Total time spent providing and/or coordinating discharge services: Greater than 30 minutes Medical - DS: Exam - Constitutional Vitals: Vital Signs Temp Pulse Resp BP Pulse Ox 11/17/16 07:41 98.4 F 70 16 176/111 95 11/17/16 04:57 168/92 11/17/16 04:00 98.4 F 18 175/106 97 11/16/16 23:47 99 F 20 161/93 99 11/16/16 22:30 98 11/16/16 22:29 98 11/16/16 19:42 99.5 F 20 132/82 98 11/16/16 16:00 98.4 F 74 16 140/97 92 11/16/16 11:32 98.4 F 20 124/76 99 Intake and Output 11/16/16 11/17/16 11/17/16 21:59 05:59 13:59 Intake Total 1310 / 1310 100 / 100 Output Total 650 / 650 950 / 950 250 / 250 Balance 660 / 660 -850 / -850 -250 / -250 Intake: Oral 1310 / 1310 100 / 100 Output: Urine Catheter Amount 450 / 450 Void Amount 200 / 200 950 / 950 250 / 250 Other: Meal Dinner Percent of Meal Consumed 100% Feeding Ability Independent # Bowel Movements 1 Weight 136 lb Medical - DS: Data Labs on day of discharge: Labs from last 24 hours 11/17/16 11/17/16 04:17 04:17 WBC 6.3 RBC 4.92 Hgb 14.7 Hct 44.7 MCV 90.8 MCH 29.8 MCHC 32.8 RDW 13.4 Plt Count 174 MPV 9.1 Gran % 60.9 Lymph % (Auto) 25.4 [place] % (Auto) 7.5 Eos % (Auto) 5.6 Baso % (Auto) 0.6 Gran # 3.8 Lymph # 1.6 [place] # 0.5 Eos # 0.4 Baso # 0 Sodium 139 Potassium 4.0 Chloride 100 Carbon Dioxide 26 Anion Gap 13.0 BUN 18 Creatinine 1.0 GFR Calculation 67 Glucose 92 Uric Acid 3.1 Calcium 8.5 L Phosphorus 3.0 Magnesium 2.0 Total Bilirubin 0.9 Direct Bilirubin 0.2 GGT 9 AST 19 ALT 12 Alkaline Phosphatase 62 Lactate Dehydrogenase 193 Total Protein 6.7 Albumin 3.9 Globulin 2.8 Albumin/Globulin Ratio 1.4 Triglycerides 66 MRI of his brain done ,shows cerebral atrophy, small vessel ischemic change, and sinusitis.orbits and globes appear normal. chest x-ray from today, November 16, shows no acute abnormalities. Today's reading says no infiltrates are seen. Interstitial markings are mildly prominent Medical - DS: A/P - Patient/Caregiver Discharge Instructions Activity: increase activity as tolerated, resume usual activities as tolerated, wear oxygen at all times Diet: Cardiac Additional Instructions: 1. Please do not take ibuprofen or Aleve or other NSAIDs any longer, as this raises blood pressure, and can irritate her stomach. #2. Please take Tylenol if needed for pain, or ask your doctor for a prescription for Hamel if the Tylenol is not strong enough. #3. For your lung symptoms, I would keep your oxygen at about 1 L while you are at rest, and dilated up to 2 or 3 L when you are walking, as her oxygen levels to drop when you exert yourself. Please ask your new primary care physician about a referral to a investor relations manager to see if they have any other recommendations for your lung condition at this time. -patient certainly avoidany fumes that seemed to irritate your breathing. #4. for your sinus symptoms, he continues the saline nasal spray, or the Flonase nasal spray that I prescribed for you, which should decrease sinus inflammation. He can also try a nanny pot or other nasal irrigation system to help with her sinus symptoms. #5. If you continue to have severe left-sided headaches, please discuss this with her primary care physician, or have him refer you to a neurologist. He should also have follow-up with ophthalmology regarding ear glaucoma. #6. Please resume your daily 81 mg aspirin, as this helps decrease risk of stroke and heart attack.your nose bleeds may have been related to dry air, and sinusitis. I would continue to use the nasal saline spray frequently to keep ear nasal passages from drying out. It can also buy an gaot-laz-gaegisu nasal saline gel to put in the nasal passages to help prevent them from drying out. Prescriptions: Albuterol Sulfate [Proair Hfa] 8.5 gm IH Q4HP PRN #1 [email or web address] PRN Reason: Shortness Of Breath Or Wheezing Fluticasone Propionate [Flonase] 1 spray NS BIDP PRN #1 spray.lisbeth PRN Reason: Sinus Symptoms - Problem Maintenance (1) Short lasting unilateral neuralgiform headache with conjunctival injection and tearing Status: Acute (2) Elevated blood pressure reading Status: Acute (3) CHF NYHA class III (symptoms with mildly strenuous activities) Status: Chronic Qualifiers: Congestive heart failure type: unspecified congestive heart failure type Qualified Code(s): I50.9 - Heart failure, unspecified (4) Chronic obstructive pulmonary disease Status: Chronic - Follow up Plan Follow up with: Mitchell Nam MD [Primary Care Provider] - 11/18/16 9:00 am (Your 11:30 nurse only appointment has been canceled.) Bernabe Nunes MD [Physician] - 01/06/17 11:00 am (Continue with your pereviously scheduled follow up appointment.) Disposition: Home, Self-Care Prognosis: Fair Rehab Potential: Fair I certify that the patient requires SNF services: No Overall status at discharge: patient is progressing back to baseline Medical - DS: Qual - VTE Deep Vein Thrombosis/Pulmonary Embolism Present on Admission: No
== END 2016-11-17 13:45 | disposition home or self-care (01) ==
LOC: ICU 18:07 → ED 18:07 → ICU 22:15
PROVIDERS: ADMIT Internal Medicine; ATTEND Internal Medicine